=== PATIENT | male | born 1950 | race Caucasian/White ===

== ENCOUNTER → 2019-01-25 | Outpatient (CLI) | payer OTHER ==
[~2019-01-25] MED LIST: CHANTIX1 MG PO; FLOMAX PO; IBUPROFEN 600600 M1 PO; NORCO 10-325 T1 EACH PO
== END ==
LOC: ULTRA 09:24
DX: D17.79 Benign lipomatous neoplasm of other sites (principal); N63.10 Unspecified lump in the right breast, unspecified quadrant